=== PATIENT | male | born 1960 | race Two or more races ===

== ENCOUNTER 2017-12-16 10:07 | Emergency (ER) | payer OTHER ==
[~2017-12-16] VITALS: Ht 167.6 cm; Wt 68.0 kg
[~2017-12-16 10:07] MED LIST: AMANTADINE100 MG; ATORVASTATIN CA40 MG PO; B Complex CAPSULE PO; BACLOFEN10 MG PO; CLONAZEPAM0.5 MG; CLONAZEPAM1 MG PO; CONZIP300 MG; INTEGRA F CAPS1 EACH PO; INTEGRA PLUS C1 EACH PO; Invanz IV; LEVAQUIN750 MG; LEVAQUIN750 MG PO; LIPITOR40 MG PO; Neurin-Sl Tablet Sl SL; PERCOCET 5-3251 EACH PO; POM (MEDICAMENTO EN PO; TOPROL XL25 M1; TOPROL XL50 M1 PO; TOPROL XL50 MG PO; TRAM1TAB98 PO; TRAMADOL HCL E300 M1 PO; XARELTO10 MG PO; XARELTO20 MG PO; ZANTAC150 M3
== END 2017-12-16 12:19 | disposition home or self-care (01) ==
LOC: ER 10:07
DX: L89.210 Pressure ulcer of right hip, unstageable (principal); L89.159 Pressure ulcer of sacral region, unspecified stage; M70.61 Trochanteric bursitis, right hip; Z74.01 Bed confinement status; Z96.641 Presence of right artificial hip joint

== ENCOUNTER 2018-04-11 08:51 | Emergency (ER) | payer OTHER ==
[~2018-04-11] VITALS: Ht 162.6 cm; Wt 61.2 kg
[2018-04-11] MEDS ORDERED: FOLIC ACID1 MG (09:31)
[2018-04-11] MEDS ORDERED: ZANTAC150 MG (09:31)
[2018-04-11] MEDS ORDERED: IRON 100 PLUS1 EACH (09:32)
== END 2018-04-11 11:00 | disposition home or self-care (01) ==
LOC: ER 08:51
DX: T84.51XA Infection and inflammatory reaction due to internal right hip prosthesis, initial encounter (principal); T84.020A Dislocation of internal right hip prosthesis, initial encounter; L98.498 Non-pressure chronic ulcer of skin of other sites with other specified severity; L92.8 Other granulomatous disorders of the skin and subcutaneous tissue; Z96.641 Presence of right artificial hip joint

== ENCOUNTER 2018-04-26 10:48 | Inpatient (IN) | payer OTHER ==
[~2018-04-26] VITALS: Ht 167.6 cm; Wt 61.2 kg
[~2018-04-26 10:48] MED LIST changes: +FOLIC ACID1 MG; +IRON 100 PLUS1 EACH; +ZANTAC150 MG
== END 2018-05-09 19:19 | disposition home health service (06) | DRG 466 ==
LOC: ER 10:48 → SEC-K 18:40 → SURH 18:40
PROVIDERS: Orthopaedic Surgery
PROC: 0SB90ZZ Excision of Right Hip Joint, Open Approach (ICD-10-PCS; 2018-05-02)
PROC: 3E0U029 Introduction of Other Anti-infective into Joints, Open Approach (ICD-10-PCS; 2018-05-02)
PROC: 0SW90JZ Revision of Synthetic Substitute in Right Hip Joint, Open Approach (ICD-10-PCS; principal; 2018-05-02 12:30)
PROC: 02HV33Z Insertion of Infusion Device into Superior Vena Cava, Percutaneous Approach (ICD-10-PCS; 2018-05-04)
DX: T84.51XA Infection and inflammatory reaction due to internal right hip prosthesis, initial encounter (principal); L89.213 Pressure ulcer of right hip, stage 3; L89.154 Pressure ulcer of sacral region, stage 4; T81.4XXA Infection following a procedure, initial encounter; L02.415 Cutaneous abscess of right lower limb; I69.351 Hemiplegia and hemiparesis following cerebral infarction affecting right dominant side; Y83.8 Other surgical procedures as the cause of abnormal reaction of the patient, or of later complication, without mention of misadventure at the time of the procedure; Y92.098 Other place in other non-institutional residence as the place of occurrence of the external cause; I10 Essential (primary) hypertension; M16.11 Unilateral primary osteoarthritis, right hip; Z74.01 Bed confinement status; B96.4 Proteus (mirabilis) (morganii) as the cause of diseases classified elsewhere; I48.0 Paroxysmal atrial fibrillation; D64.89 Other specified anemias

== ENCOUNTER 2018-06-06 07:00 | Day surgery (SDC) | payer OTHER ==
[~2018-06-06] VITALS: Ht 172.7 cm; Wt 61.7 kg
[2018-06-06] MEDS ORDERED: ELIQUIS2.5 MG PO (17:26)
[2018-06-06] MEDS ORDERED: ULTRACET PO (17:26)
== END 2018-06-06 17:20 | disposition home or self-care (01) ==
LOC: CIR.AMB 07:00 → O/R 10:00 → EDSTATUS 14:00 → O/R 14:00 → CIR.AMB 17:20 → O/R 21:00
DX: T84.51XA Infection and inflammatory reaction due to internal right hip prosthesis, initial encounter (principal); L02.415 Cutaneous abscess of right lower limb; Y83.8 Other surgical procedures as the cause of abnormal reaction of the patient, or of later complication, without mention of misadventure at the time of the procedure; Y92.098 Other place in other non-institutional residence as the place of occurrence of the external cause

== ENCOUNTER → 2018-08-09 09:34 | Outpatient (CLI) | payer OTHER ==
[~2018-08-09 09:34] MED LIST changes: +ELIQUIS2.5 MG PO; +ULTRACET PO
== END | disposition home or self-care (01) ==
LOC: LAB 09:34
DX: B99.8 Other infectious disease (principal)

== ENCOUNTER 2018-09-27 09:52 | Emergency (ER) | payer OTHER ==
[~2018-09-27] VITALS: Ht 170.2 cm; Wt 54.4 kg
[2018-09-27] MEDS ORDERED: XARELTO20 MG (10:18)
== END 2018-09-27 12:42 | disposition home or self-care (01) ==
LOC: ER 09:52
DX: L97.119 Non-pressure chronic ulcer of right thigh with unspecified severity (principal)

== ENCOUNTER 2018-09-27 12:34 | Outpatient (CLI) | payer OTHER ==
[~2018-09-27 12:34] MED LIST changes: +XARELTO20 MG
== END 2018-09-27 12:44 | disposition home or self-care (01) ==
LOC: LAB 12:34
DX: I10 Essential (primary) hypertension (principal)

== ENCOUNTER 2018-12-25 09:42 | Outpatient (CLI) | payer OTHER | END 2018-12-25 10:52 | disposition home or self-care (01) | LOC: LAB 09:42 | DX: D64.89 Other specified anemias (principal); I10 Essential (primary) hypertension ==

== ENCOUNTER 2019-02-27 09:50 | Outpatient (CLI) | payer OTHER | END 2019-02-27 10:00 | disposition home or self-care (01) | LOC: LAB 09:50 | DX: D64.89 Other specified anemias (principal); I10 Essential (primary) hypertension ==

== ENCOUNTER 2019-04-27 10:21 | Outpatient (CLI) | payer OTHER | END 2019-04-27 10:32 | disposition home or self-care (01) | LOC: LAB 10:21 | DX: D64.89 Other specified anemias (principal); I10 Essential (primary) hypertension ==

== ENCOUNTER 2019-05-29 11:07 | Outpatient (CLI) | payer OTHER | END 2019-05-29 13:25 | disposition home or self-care (01) | LOC: LAB 11:07 | DX: D64.89 Other specified anemias (principal); I10 Essential (primary) hypertension ==

== ENCOUNTER → 2019-06-27 11:01 | Outpatient (CLI) | payer OTHER | END | disposition home or self-care (01) | LOC: LAB 11:01 | DX: D64.89 Other specified anemias (principal); I10 Essential (primary) hypertension ==

== ENCOUNTER → 2019-07-31 10:07 | Outpatient (CLI) | payer OTHER | END | disposition home or self-care (01) | LOC: LAB 10:07 | DX: D64.89 Other specified anemias (principal); I10 Essential (primary) hypertension ==

== ENCOUNTER 2019-10-01 10:08 | Outpatient (CLI) | payer OTHER | END 2019-10-01 10:13 | disposition home or self-care (01) | LOC: LAB 10:08 | DX: D64.89 Other specified anemias (principal); I10 Essential (primary) hypertension ==

== ENCOUNTER 2019-11-23 08:29 | Outpatient (CLI) | payer OTHER | END 2019-11-23 08:45 | disposition home or self-care (01) | LOC: LAB 08:29 | DX: D64.89 Other specified anemias (principal); I10 Essential (primary) hypertension ==

== ENCOUNTER → 2019-12-24 09:37 | Outpatient (CLI) | payer OTHER | END | disposition home or self-care (01) | LOC: LAB 09:37 | DX: D64.89 Other specified anemias (principal); I10 Essential (primary) hypertension; E83.30 Disorder of phosphorus metabolism, unspecified ==

== ENCOUNTER 2020-01-28 09:34 | Outpatient (CLI) | payer OTHER | END 2020-01-28 09:40 | disposition home or self-care (01) | LOC: LAB 09:34 | DX: D64.89 Other specified anemias (principal); I10 Essential (primary) hypertension; E83.30 Disorder of phosphorus metabolism, unspecified ==

== ENCOUNTER 2020-03-03 09:23 | Outpatient (CLI) | payer OTHER | END 2020-03-03 13:03 | disposition home or self-care (01) | LOC: LAB 09:23 | PROVIDERS: ATTEND Internal Medicine Infectious Disease | DX: D64.89 Other specified anemias (principal); E83.39 Other disorders of phosphorus metabolism ==

== ENCOUNTER 2020-03-10 09:17 | Outpatient (CLI) | payer OTHER | END 2020-03-10 15:00 | disposition home or self-care (01) | LOC: LAB 09:17 | PROVIDERS: ATTEND Internal Medicine Infectious Disease | DX: D64.89 Other specified anemias (principal); I10 Essential (primary) hypertension ==

== ENCOUNTER 2020-04-03 06:00 | Day surgery (SDC) | payer OTHER | END 2020-04-03 10:02 | disposition home or self-care (01) | LOC: AMB-ENDOS 06:00 | PROVIDERS: ATTEND Internal Medicine Gastroenterology | DX: K29.60 Other gastritis without bleeding (principal); K62.89 Other specified diseases of anus and rectum; K64.8 Other hemorrhoids; Z20.828 Contact with and (suspected) exposure to other viral communicable diseases ==

== ENCOUNTER 2020-05-05 09:43 | Outpatient (CLI) | payer OTHER | END 2020-05-05 09:47 | disposition home or self-care (01) | LOC: LAB 09:43 | PROVIDERS: ATTEND Internal Medicine Infectious Disease | DX: D64.89 Other specified anemias (principal); I10 Essential (primary) hypertension ==

== ENCOUNTER → 2020-06-23 09:55 | Outpatient (CLI) | payer OTHER | END | disposition home or self-care (01) | LOC: LAB 09:55 | PROVIDERS: ATTEND Internal Medicine Infectious Disease | DX: D64.89 Other specified anemias (principal); I10 Essential (primary) hypertension; E21.3 Hyperparathyroidism, unspecified ==

== ENCOUNTER 2020-07-21 09:23 | Outpatient (CLI) | payer OTHER | END 2020-07-21 15:00 | disposition home or self-care (01) | LOC: LAB 09:23 | PROVIDERS: ATTEND Internal Medicine Infectious Disease | DX: D64.89 Other specified anemias (principal); I10 Essential (primary) hypertension; E83.30 Disorder of phosphorus metabolism, unspecified ==

== ENCOUNTER → 2020-08-18 09:23 | Outpatient (CLI) | payer OTHER | END | disposition home or self-care (01) | LOC: LAB 09:23 | PROVIDERS: ATTEND Internal Medicine Infectious Disease | DX: D64.89 Other specified anemias (principal); I10 Essential (primary) hypertension ==

== ENCOUNTER 2020-09-15 09:45 | Outpatient (CLI) | payer OTHER | END 2020-09-15 09:50 | disposition home or self-care (01) | LOC: LAB 09:45 | PROVIDERS: ATTEND Internal Medicine Infectious Disease | DX: D64.89 Other specified anemias (principal); I10 Essential (primary) hypertension ==

== ENCOUNTER 2020-09-29 12:27 | Inpatient (IN) | payer OTHER ==
[~2020-09-29] VITALS: Ht 160 cm; Wt 75.7 kg
[2020-09-29] MEDS ORDERED: PROTONIX40 MG PO (12:58)
[2020-09-29] MEDS ORDERED: PRE PROTEIN 2030 ML (12:59)
--- NOTE | 2020-09-29 13:10 | NUR ---
PACIENTE MASCULINO ALERTA Y ORIENTADO, REFIERE ESTAR SANGR[place]O POR LA PIEL ABIERTA EN AREA DE OPERACION.
--- NOTE | 2020-09-29 14:10 | NUR ---
SE RECIBE PACIENTE ALERTA Y ORIENTADO EN TIEMPO LUGAR Y PERSONA. RN BREE ORIENTA A PACIENTE SOBRE TRATAMIENTO ORDENADO POR DRA. RODRIGUEZ. RN COLECTA MUESTRAS ORDENADAS, ADMINISTRA MEDICAMENTOS Y COLOCA VENOPUNCION PATENTE, JUAN LUIS DE ERITEMA Y EDEMA. SE MANTIENE PACIENTE EN OBSERVACION POR CAMBIOS EN TURNER CONDICION.
--- NOTE | 2020-09-29 14:44 | NUR ---
PACIENTE CON 2 ULCERAS EN GLUTEO DERECHO MOOKIE DE ELLAS ABIERTAS Y SUTURANDO, SE OBSERVA AREA ROJIZA, NO SE PERSIBE MAL OLOR.
--- NOTE | 2020-09-29 15:45 | NUR ---
SE RECIBE PTE MASCULINO ALERTA Y ORIENTADO EN LAS ISIDORO ESFERAS DEL TURNO; CON BUEN PATRON RESPIRATORIO Y NO REFIERE DOLOR. VENPUNCION PATENTE JUAN LUIS DE EDEMA Y ERITEMA EN H/L. PENDIENTE MUESTRA DE COVID-19M Y ABGS YA NOTIFICADO. PTE EN PRICE BAJA CON BARANDAS ELEVADAS Y TIMBRE ACCESIBLE CON FRENOS COLOCOADOS POR SEGURIDAD.
[2020-09-30] MEDS ORDERED: OLANZAPINE5 MG (14:17)
[2020-09-30] MEDS ORDERED: [UNRECOGNIZED DRUG - OTHER] (14:17)
[2020-09-30] MEDS ORDERED: ESCITALOPRAM OX20 MG (14:17)
[2020-09-30] MEDS ORDERED: BRIMONIDINE TART5 ML (14:17)
[2020-09-30] MEDS ORDERED: FERROUS SULFAT325 MG (14:18)
[2020-09-30] MEDS ORDERED: AMOX-CLAV 875-1 EACH (14:18)
[2020-09-30] MEDS ORDERED: DORZOLAMIDE HCL10 ML (14:18)
[2020-09-30] MEDS ORDERED: AMMONIUM LACTA385 GM (14:18)
[2020-10-03] MEDS ORDERED: ABANEU-SL TABL1 EACH (08:59)
[2020-10-24] MEDS ORDERED: LIPITOR40 MG PO (17:02)
[2020-10-24] MEDS ORDERED: AMIODARONE HCL200 MG PO (17:02)
[2020-10-24] MEDS ORDERED: TOPROL XL100 M1 PO (17:02)
[2020-10-24] MEDS ORDERED: Neurin-Sl Tablet Sl SL (17:02)
[2020-10-24] MEDS ORDERED: COUMADIN PO (17:02)
[2020-10-24] MEDS ORDERED: BACLOFEN10 MG PO (17:02)
[2020-10-24] MEDS ORDERED: FOLIC ACID1 MG PO (17:02)
[2020-10-24] MEDS ORDERED: INTEGRA PLUS C1 EACH PO (17:02)
[2020-10-24] MEDS ORDERED: INTESTINEX680 M1 PO (17:02)
[2020-10-24] MEDS ORDERED: POM (MEDICAMENTO EN PO (17:02)
[2020-10-24] MEDS ORDERED: LASIX20 MG PO (17:02)
[2020-10-24] MEDS ORDERED: PROTONIX40 MG PO (17:02)
== END 2020-10-24 20:04 | disposition home health service (06) | DRG 559 ==
LOC: ER 12:27 → SURH 22:28
PROVIDERS: ADMIT Internal Medicine; ATTEND Internal Medicine
PROC: 8E0ZXY6 Isolation (ICD-10-PCS; principal; 2020-09-29)
PROC: BQ30ZZZ Magnetic Resonance Imaging (MRI) of Right Hip (ICD-10-PCS; 2020-10-01)
PROC: BW25ZZZ Computerized Tomography (CT Scan) of Chest, Abdomen and Pelvis (ICD-10-PCS; 2020-10-01)
PROC: 4A033R1 Measurement of Arterial Saturation, Peripheral, Percutaneous Approach (ICD-10-PCS; 2020-10-02)
PROC: B24BZZZ Ultrasonography of Heart with Aorta (ICD-10-PCS; 2020-10-02)
PROC: 4A12X4Z Monitoring of Cardiac Electrical Activity, External Approach (ICD-10-PCS; 2020-10-02)
PROC: 02HV33Z Insertion of Infusion Device into Superior Vena Cava, Percutaneous Approach (ICD-10-PCS; 2020-10-03)
PROC: 0H98X0Z Drainage of Buttock Skin with Drainage Device, External Approach (ICD-10-PCS; 2020-10-06)
PROC: 0H98X0Z Drainage of Buttock Skin with Drainage Device, External Approach (ICD-10-PCS; 2020-10-19)
DX: T84.51XA Infection and inflammatory reaction due to internal right hip prosthesis, initial encounter (principal); A41.9 Sepsis, unspecified organism; L89.154 Pressure ulcer of sacral region, stage 4; I50.31 Acute diastolic (congestive) heart failure; I69.351 Hemiplegia and hemiparesis following cerebral infarction affecting right dominant side; L02.31 Cutaneous abscess of buttock; I48.0 Paroxysmal atrial fibrillation; Z79.01 Long term (current) use of anticoagulants; L98.419 Non-pressure chronic ulcer of buttock with unspecified severity; Z20.822 Contact with and (suspected) exposure to COVID-19; E86.0 Dehydration; E87.6 Hypokalemia; Z74.01 Bed confinement status; I11.0 Hypertensive heart disease with heart failure; B96.4 Proteus (mirabilis) (morganii) as the cause of diseases classified elsewhere; D64.9 Anemia, unspecified; I34.2 Nonrheumatic mitral (valve) stenosis
CPT/HCPCS: 73221; 73722

== ENCOUNTER 2020-12-24 16:01 | Outpatient (CLI) | payer OTHER ==
[~2020-12-24 16:01] MED LIST changes: +ABANEU-SL TABL1 EACH; +AMIODARONE HCL200 MG PO; +AMMONIUM LACTA385 GM; +AMOX-CLAV 875-1 EACH; +BRIMONIDINE TART5 ML; +COUMADIN PO; +DORZOLAMIDE HCL10 ML; +ESCITALOPRAM OX20 MG; +FERROUS SULFAT325 MG; +FOLIC ACID1 MG PO; +INTESTINEX680 M1 PO; +LASIX20 MG PO; +OLANZAPINE5 MG; +PRE PROTEIN 2030 ML; +PROTONIX40 MG PO; +TOPROL XL100 M1 PO; +[UNRECOGNIZED DRUG - OTHER]
== END 2020-12-24 16:04 | disposition home or self-care (01) ==
LOC: LAB 16:01
PROVIDERS: ATTEND Radiology Diagnostic Radiology
DX: N20.0 Calculus of kidney (principal)

== ENCOUNTER 2020-12-25 09:14 | Outpatient (CLI) | payer OTHER | END 2020-12-25 09:31 | disposition home or self-care (01) | LOC: MRI 09:14 | DX: T84.59XA Infection and inflammatory reaction due to other internal joint prosthesis, initial encounter (principal) | CPT/HCPCS: 73720; A9575 ==

== ENCOUNTER 2020-12-30 09:25 | Inpatient (IN) | payer OTHER ==
[~2020-12-30] VITALS: Ht 170.2 cm; Wt 70.8 kg
[2020-12-30] MEDS ORDERED: LEXAPRO20 MG PO (09:39)
[2020-12-30] MEDS ORDERED: OLANZAPINE2.5 MG PO (09:41)
[2020-12-30] MEDS ORDERED: CLONAZEPAM0.5 MG (09:44)
[2020-12-31] MEDS ORDERED: ABANEU-SL TABL1 EACH (11:26)
[2020-12-31] MEDS ORDERED: FUROSEMIDE20 MG (11:27)
[2020-12-31] MEDS ORDERED: INTEGRA PLUS C1 EACH (11:27)
[2020-12-31] MEDS ORDERED: AMMONIUM LACTA385 GM (11:27)
== END 2021-01-07 18:08 | disposition home or self-care (01) | DRG 560 ==
LOC: ER 09:25 → MEDJ 23:02 → SEC-K 23:02 → SURG 23:02 → MEDJ 12-31 03:18 → SURG 12-31 08:19 → SURH 01-01 19:25
PROVIDERS: ADMIT Internal Medicine; ATTEND Internal Medicine
PROC: 0H9KX0Z Drainage of Right Lower Leg Skin with Drainage Device, External Approach (ICD-10-PCS; principal; 2021-01-04)
DX: T84.51XA Infection and inflammatory reaction due to internal right hip prosthesis, initial encounter (principal); L02.415 Cutaneous abscess of right lower limb; I69.351 Hemiplegia and hemiparesis following cerebral infarction affecting right dominant side; L97.818 Non-pressure chronic ulcer of other part of right lower leg with other specified severity; B96.5 Pseudomonas (aeruginosa) (mallei) (pseudomallei) as the cause of diseases classified elsewhere; Z20.822 Contact with and (suspected) exposure to COVID-19; Z74.01 Bed confinement status; I10 Essential (primary) hypertension; F32.9 Major depressive disorder, single episode, unspecified

== ENCOUNTER → 2021-02-20 09:16 | Outpatient (CLI) | payer OTHER ==
[~2021-02-20 09:16] MED LIST changes: +FUROSEMIDE20 MG; +INTEGRA PLUS C1 EACH; +LEXAPRO20 MG PO; +OLANZAPINE2.5 MG PO
== END | disposition home or self-care (01) ==
LOC: LAB 09:16
PROVIDERS: ATTEND Internal Medicine Infectious Disease
DX: D64.9 Anemia, unspecified (principal); I10 Essential (primary) hypertension; E61.2 Magnesium deficiency

== ENCOUNTER → 2021-06-08 09:25 | Outpatient (CLI) | payer OTHER | END | disposition home or self-care (01) | LOC: LAB 09:25 | PROVIDERS: ATTEND Internal Medicine Infectious Disease | DX: D64.89 Other specified anemias (principal); I10 Essential (primary) hypertension ==

== ENCOUNTER 2021-07-09 07:18 | Outpatient (CLI) | payer OTHER | END 2021-07-09 07:21 | disposition home or self-care (01) | LOC: NUCLEAR 07:18 | PROVIDERS: ATTEND Orthopaedic Surgery | DX: I82.403 Acute embolism and thrombosis of unspecified deep veins of lower extremity, bilateral (principal) ==

== ENCOUNTER 2021-07-27 10:19 | Outpatient (CLI) | payer OTHER | END 2021-07-27 10:20 | disposition home or self-care (01) | LOC: LAB 10:19 | PROVIDERS: ATTEND Internal Medicine Infectious Disease | DX: D64.89 Other specified anemias (principal); I10 Essential (primary) hypertension ==

== ENCOUNTER 2021-09-13 10:33 | Emergency (ER) | payer OTHER ==
[~2021-09-13] VITALS: Ht 167.6 cm; Wt 68.0 kg
[2021-09-13] MEDS ORDERED: LIPITOR80 MG PO (10:57)
[2021-09-13] MEDS ORDERED: LEXAPRO20 MG PO (10:58)
[2021-09-13] MEDS ORDERED: TOPROL XL25 M1 PO (10:58)
[2021-09-13] MEDS ORDERED: CEFDINIR300 MG PO (11:01)
[2021-09-13] MEDS ORDERED: NEURIN SL (11:04)
== END 2021-09-13 21:41 | disposition home or self-care (01) ==
LOC: ER 10:33
DX: L02.214 Cutaneous abscess of groin (principal)

== ENCOUNTER 2021-10-13 09:06 | Inpatient (IN) | payer OTHER ==
[~2021-10-13] VITALS: Ht 162.6 cm; Wt 68.0 kg
[~2021-10-13 09:06] MED LIST changes: +CEFDINIR300 MG PO; +LIPITOR80 MG PO; +NEURIN SL; +TOPROL XL25 M1 PO
[2021-10-14] MEDS ORDERED: FERROUS SULFAT325 MG (08:17)
[2021-10-14] MEDS ORDERED: DORZOLAMIDE HCL10 ML (08:17)
[2021-10-14] MEDS ORDERED: BRIMONIDINE TART5 ML (08:17)
[2021-10-14] MEDS ORDERED: ABANEU-SL TABL1 EACH (08:18)
== END 2021-10-15 12:01 | disposition home or self-care (01) | DRG 602 ==
LOC: ER 09:06 → SEC-K 15:00 → SURH 15:00
PROVIDERS: ADMIT Internal Medicine; ATTEND Internal Medicine
DX: L02.415 Cutaneous abscess of right lower limb (principal); L89.154 Pressure ulcer of sacral region, stage 4; G81.91 Hemiplegia, unspecified affecting right dominant side; T84.50XA Infection and inflammatory reaction due to unspecified internal joint prosthesis, initial encounter; D64.9 Anemia, unspecified; I10 Essential (primary) hypertension; Z20.822 Contact with and (suspected) exposure to COVID-19; Z74.01 Bed confinement status; E78.49 Other hyperlipidemia; I48.91 Unspecified atrial fibrillation; M19.90 Unspecified osteoarthritis, unspecified site